=== PATIENT | male | born 2000 | race Caucasian/White ===

== ENCOUNTER 2021-08-07 04:07 | Emergency (ER) | payer BC, OTHER ==
[~2021-08-07] VITALS: Ht 180 cm; Wt 70.3 kg
[2021-08-07 04:17] VITALS: BP 135/99
[2021-08-07] MEDS ORDERED: HYDR-700 (04:27)
[2021-08-07] MEDS ORDERED: PARO10TA3 (04:27)
--- NOTE | 2021-08-07 04:28 | ED Psychosocial ---
General Stated Complaint: POSS ALLERGIC RXN Source: patient Exam Limitations: no limitations History of Present Illness Date Seen by Provider: Aug 07, 2021 Time Seen by Provider: 04:16 Initial Comments Patient to the ER by private conveyance from home with chief complaint that he was awoken from sleep after having a very distressing dream feeling weird with weird vision but no blurry vision, double vision, spots, blindness. He has a history of panic attacks although this was more intense than his previous ones. He feels that in the last several months that they have become more frequent and more intense. He did go see Dr. Frankel in [place] and was started on Paxil yesterday as well as given some hydroxyzine. He has not taken the hydroxyzine yet because he was concerned that perhaps this new medication may have been the culprit in his symptoms today. No shortness of breath, wheezing, cough, thickening of the tongue, difficulty swallowing or vocal changes. Allergies and Home Medications Allergies Coded Allergies: No Known Drug Allergies (Unverified , 08/07/21) Patient Home Medication List Home Medication List Reviewed: Yes Hydroxyzine HCl (Hydroxyzine HCl) 25 Mg Tablet, (Reported) Entered as Reported by: MANDEEP MESSINA on 08/07/21426 Last Action: New Order Paroxetine HCl (Paroxetine HCl) 10 Mg Tablet, (Reported) Entered as Reported by: MANDEEP MESSINA on 08/07/21426 Last Action: New Order Review of Systems Constitutional: No chills, No diaphoresis EENTM: No ear discharge, No ear pain Respiratory: No cough, No phlegm, No short of breath Cardiovascular: No chest pain, No edema, No palpitations Gastrointestinal: No abdominal pain, No nausea, No vomiting All Other Systems Reviewed Negative Unless Noted: Yes Past [id number]-[id number] Hx Patient Social History Tobacco Use?: No Use of E-Cig and/or Vaping dev: No Substance use?: No Physical Exam Capillary Refill : Height, Weight, BMI Height: '" Weight: lbs. oz. kg; BMI Method: General Appearance: WD/WN, mild distress HEENT: PERRL/EOMI, pharynx normal Neck: full range of motion, normal inspection Respiratory: no respiratory distress, no accessory muscle use Cardiovascular: normal peripheral pulses, regular rate, rhythm Peripheral Pulses: 2+ Radial Pulses (R), 2+ Radial Pulses (L) Extremities: normal inspection, no pedal edema Neurologic/Psychiatric: alert, oriented x 3, other (Anxious affect) Skin: normal color, warm/dry Progress/Results/Core Measures Results/Orders My Orders Orders - ELVIS PRIDE Hydroxyzine Cap/Tab (Vistaril) (08/07/21 04:30) Progress Progress Note : Time: 04:33 Progress Note Well-appearing adult male who appears to be having a panic attack based on clinical exam and history. Aseptic vital signs. Discussed giving him some hydroxyzine to let him go home and make appropriate follow-up in the next few weeks to discuss the efficacy of his dose of Paxil. Discussed return precautions. Questions were answered. Departure Impression Primary Impression: Panic attack Disposition: 01 HOME, SELF-CARE Condition: Stable Departure-Patient Inst. Decision time for Depature: 04:27 Referrals: NO,LOCAL PHYSICIAN (PCP/Family) Primary Care Physician Patient Instructions: Cognitive-Behavioral Therapy, Panic Disorder (DC) Add. Discharge Instructions: Continue to use your medications as prescribed. Make sure you are following up with your primary care doctor in the next couple weeks to reassess the effects of your medications. They want to discuss with your doctor if Paxil is a good drug for you, if it is helping and if you need to change the dose. Review the handout on cognitive behavioral techniques. At the first sign of a panic attack coming on take your hydroxyzine and remove yourself to a quiet, calm place where you can focus on your breathing and practice some of the techniques in handout. If you cannot control your symptoms then you are always welcome to return to the ER and we can help you. ELVIS PRIDE Aug 07, 2021 04:28
[2021-08-07] MEDS ORDERED: hydrOXYzine (VISTARIL/ATARAX) 25 MG capsule/tablet PO ONE (04:30)
== END 2021-08-07 04:34 | disposition home or self-care (01) ==
LOC: ER 04:14
DX: F41.0 Panic disorder [episodic paroxysmal anxiety] (principal); Z79.02 Long term (current) use of antithrombotics/antiplatelets
CPT/HCPCS: 99283